=== PATIENT | male | born 1990 | race Caucasian/White ===

== ENCOUNTER 2018-09-01 20:20 | Emergency (ER) | payer OTHER ==
[~2018-09-01] VITALS: Ht 172.7 cm; Wt 81.0 kg
[2018-09-01 20:40] VITALS: Ht 172.7 cm; Wt 81.0 kg
--- NOTE | 2018-09-01 21:44 | ERD ---
ER Documentation Chief Complaint Chief Complaint headache x 4 days. denies vomiting HPI Patient is a 28 years old male with no known past medical history presenting to the clinic for worsening headache and sinus pressure since Saturday. Patient admits to taking [id number] Advil with resolution initially. Patient denies fever, chills, night sweats, ear pain, throat pain, cough, shortness of breath, body aches, malaise. ROS All systems reviewed and are negative except as per history of present illness. Medications Home Meds Active Scripts Ibuprofen* (Motrin*) 800 Mg Tab, 800 MG PO Q6, #30 TAB Prov:BELKIS ZIMMERMAN PA-C 09/01/18 Mometasone Furoate* (Nasonex*) 50 Mcg/[place] - 17 Gm [place].pump, 2 SPRAY NASAL BID, #1 BOTTLE TO EACH NOSTRIL Prov:BELKIS ZIMMERMAN PA-C 09/01/18 Methylprednisolone* (Medrol* DOSE PACK) 4 Mg/Dose-Pack Tab.ds.pk, 4 MG PO . DIRECTED for 5 Days, PACKET Prov:BELKIS ZIMMERMAN PA-C 09/01/18 Reported Medications [None] No Conflict Check 05/14/09 Allergies Allergies: Coded Allergies: No Known Drug Allergies (Verified Allergy, Mild, 05/14/09) PMhx/Soc Medical and Surgical Hx: pt denies Medical Hx, pt denies Surgical Hx History of Surgery: No Anesthesia Reaction: No Hx Neurological Disorder: No Hx Respiratory Disorders: No Hx Cardiac Disorders: No Hx Psychiatric Problems: No Hx Miscellaneous Medical Probl: No Hx Alcohol Use: No Hx Substance Use: No Hx Tobacco Use: No Smoking Status: Never smoker FmHx Family History: No diabetes, No coronary disease, No other Physical Exam Vitals Vital Signs Date Temp Pulse Resp B/P (MAP) Pulse Ox O2 O2 Flow FiO2 Time Delivery Rate 09/01/18 80 16 122/78 99 Room Air 22:29 (93) 09/01/18 98.2 77 18 122/67 99 20:40 (85) Physical Exam Const: No acute distress Head: Atraumatic. Left maxillary sinus tenderness. Eyes: Normal Conjunctiva. ENT: Normal External Ears, and Mouth. Unremarkable oropharyngeal exam. Normal tympanic membranes bilaterally. Neck: Full range of motion. No meningismus. Resp: Clear to auscultation bilaterally Cardio: Regular rate and rhythm, no murmurs Neur: Awake and alert Psych: Normal Mood and Affect Results 24 hrs Current Medications Medications Dose Sig/Hetal Start Time Status Last (Trade) Ordered Route PRN Stop Time Admin Dose Reason Admin 125 mg ONCE ONCE 09/01/18 DC 09/01/18 Methylprednis IM 22:00 09/01/18 21:55 olone Sodium 22:01 Succinate (Solu-Medrol) Ibuprofen 800 mg ONCE ONCE 09/01/18 DC 09/01/18 (Motrin) PO 22:00 09/01/18 21:55 22:01 Procedures/MDM Patient was seen and evaluated for headache and sinus pain without complication. Patient's clinical symptoms most likely represents sinusitis without infection. No further work-up is required for today's visit. Patient was given Solu-Medrol 125 IM and ibuprofen with resolution of symptoms. Patient is stable and ready for discharge. Follow up with PCP. Patient will be discharged with Medrol Dosepak, Nasonex, ibuprofen. Departure Diagnosis: Primary Impression: Sinusitis Sinusitis location: maxillary Chronicity: acute Recurrence: non- recurrent Qualified Codes: J01.00 - Acute maxillary sinusitis, unspecified Additional Impression: Headache Headache type: unspecified Headache chronicity pattern: acute headache Intractability: intractable Qualified Codes: R51 - Headache Condition: Stable Patient Instructions: Self-Care for Headaches Referrals: [facility] Additional Instructions: Patient advised to return to the ED immediately for new or worsening symptoms. Patient advised to follow up with primary care provider in the next 24-48 hours. Patient verbalized understanding and agrees with treatment plan and course of action. If patient has no primary care they may follow up with [facility] [address] [place] [id number] or [facility] [id number] [place] [address] or [facility] [address] [place] [address] BELKIS ZIMMERMAN PA-C Sep 01, 2018 21:44
[2018-09-01] MEDS ORDERED: MOME17SP14 NASAL (21:45)
[2018-09-01] MEDS ORDERED: MED4DP PO (21:45)
[2018-09-01] MEDS ORDERED: IBUP800T48 PO (21:45)
[2018-09-01] MEDS ORDERED: METHYLPREDNISOLONE 125 MG INJ IM ONE (22:00)
[2018-09-01] MEDS ORDERED: IBUPROFEN 800 MG TAB PO ONE (22:00)
[2018-09-01 22:29] VITALS: BP 122/78; PULSE 80; RESP 16
== END 2018-09-01 22:30 | disposition home or self-care (01) ==
LOC: FTE 20:20
DX: J01.00 Acute maxillary sinusitis, unspecified (principal)
CPT/HCPCS: 96372; J2930; Z7502; Z7610